=== PATIENT | female | born 1980 | race Caucasian/White ===

== ENCOUNTER 2022-04-08 08:29 | Outpatient (CLI) | payer MEDICAID, SELFPAY ==
--- NOTE | 2022-04-08 | US_ITS ---
WS: [id number] OBSTETRICAL ULTRASOUND COMPLETE HISTORY: MULTIGRAVIDA IN SECOND TRIMESTER COMPARISON: None available. Single intrauterine gestation in transverse presentation. head on maternal LEFT. Cervix is Closed and normal length. Cervical length is approximately 5.0 cm. Normal amount of amniotic fluid surrounds the fetus. Placenta: Posterior, no previa or abruption. Placenta grade 1 Heart: 152 BPM. Four chambers are identified. No outflow tracts submitted. Anatomy: Intracranial structures are negative. spine is posterior during this entire examinatio n. The soft tissue covering is very difficult to visualize. No abnormality identified but limited. Fe leda kidneys, stomach and urinary bladder are unremarkable. Abdominal wall, three-vessel cord and cord insertion site are normal. 4 extremities are present. profile: Unremarkable. Gender: Female. measurements: BPD = 5.0 cm = 21w2d HC = 18.3 cm = 20w5d AC = 15.6 cm = 20w5d FL = 3.4 cm = 20w5d EFW: 377 g. Biometry is internally concordant. AGA by ultrasound: 20 weeks 6 days ELISABETH by ultrasound: 08/20/2022 US/US OB >= 14 weeks fetus [id number] IMPRESSION: 1. Single intrauterine gestation of 20 weeks 6 days with an ELISABETH of 08/20/2022. 2. No abnormality identified concerning the anatomy. Spine is limited du e to its posterior position but no abnormality identified.
== END 2022-04-08 08:30 | disposition home or self-care (01) ==
LOC: RADOUTREAD 04-09 08:34
PROVIDERS: Family Provider Family Medicine; PCP Family Medicine; Visit Provider Family Medicine
DX: Z34.82 Encounter for supervision of other normal pregnancy, second trimester (principal)
CPT/HCPCS: 76805

== ENCOUNTER 2022-08-07 20:01 | Outpatient (CLI) | payer MEDICAID, SELFPAY ==
[2022-08-07 20:07] VITALS: BP 119/61; PULSE 86; TEMP 35.8
[2022-08-07 20:10] VITALS: RESP 15
[2022-08-07 20:11] VITALS: BMI 31.6
[2022-08-07 20:28] VITALS: BP 109/60; PULSE 81
[2022-08-07 20:30] VITALS: BP 109/60; PULSE 81; RESP 15; TEMP 35.8
== END 2022-08-07 20:36 | disposition home or self-care (01) ==
LOC: OPOB 20:01 → OBGYN 20:03
PROVIDERS: Family Provider Family Medicine; PCP Family Medicine; Visit Provider Family Medicine
DX: O24.419 Gestational diabetes mellitus in pregnancy, unspecified control (principal); Z3A.00 Weeks of gestation of pregnancy not specified
CPT/HCPCS: 59025

== ENCOUNTER 2022-08-11 08:50 | Outpatient (CLI) | payer MEDICAID, SELFPAY ==
[2022-08-11 08:50] VITALS: BMI 31.5
[2022-08-11 09:00] VITALS: BP 133/68; PULSE 81; TEMP 35.7
[2022-08-11 09:11] VITALS: RESP 16
[2022-08-11 09:21] VITALS: BP 114/70; PULSE 85
[2022-08-11 09:32] VITALS: BP 114/70; PULSE 85
== END 2022-08-11 09:35 | disposition home or self-care (01) ==
LOC: OPOB 08:57 → OBGYN 08:58
PROVIDERS: Family Provider Family Medicine; PCP Family Medicine; Visit Provider Family Medicine
DX: O24.419 Gestational diabetes mellitus in pregnancy, unspecified control (principal); Z3A.00 Weeks of gestation of pregnancy not specified
CPT/HCPCS: 59025; 99211

== ENCOUNTER 2022-08-14 11:14 | Outpatient (CLI) | payer MEDICAID, SELFPAY ==
[2022-08-14 11:18] VITALS: BP 118/68; PULSE 85
[2022-08-14 11:20] VITALS: BMI 31.2
[2022-08-14 11:33] VITALS: BP 113/66; PULSE 86
== END 2022-08-14 11:45 | disposition home or self-care (01) ==
LOC: OPOB 11:15 → OBGYN 11:15
PROVIDERS: Family Provider Family Medicine; PCP Family Medicine; Visit Provider Family Medicine
DX: O24.419 Gestational diabetes mellitus in pregnancy, unspecified control (principal); Z3A.00 Weeks of gestation of pregnancy not specified
CPT/HCPCS: 59025

== ENCOUNTER 2022-08-18 11:15 | Outpatient (CLI) | payer MEDICAID, SELFPAY ==
[2022-08-18 11:28] VITALS: BP 127/70; PULSE 89
[2022-08-18 11:32] VITALS: BMI 31.5
[2022-08-18 11:34] VITALS: RESP 17
[2022-08-18 11:43] VITALS: BP 107/63; PULSE 88
[2022-08-18 11:59] VITALS: BP 116/65; PULSE 88
[2022-08-18 12:03] VITALS: BP 116/65; PULSE 88
== END 2022-08-18 12:03 | disposition home or self-care (01) ==
LOC: OPOB 11:22 → OBGYN 11:23
PROVIDERS: Family Provider Family Medicine; PCP Family Medicine; Visit Provider Family Medicine
DX: O24.419 Gestational diabetes mellitus in pregnancy, unspecified control (principal); Z3A.00 Weeks of gestation of pregnancy not specified
CPT/HCPCS: 59025

== ENCOUNTER 2022-08-19 10:29 | Inpatient (IN) | payer MEDICAID, SELFPAY ==
[2022-08-19] VITALS (23 sets, daily range): BP systolic 113–130; BP diastolic 55–73; PULSE 61–93; RESP 16; TEMP 36.9; BMI 31.6
[2022-08-19] MEDS: miSOPROStol 100 mcg tablet 25 MCG VAGINAL (07:56)
[2022-08-19 08:38] LABS: Basophils % 0.3 %; Eosinophils # 0.2 10^3/uL (0.0-0.8); Eosinophils % 2.1 %; Hematocrit 36.2 % (37.0-47.0); Hemoglobin 12.1 g/dL (11.5-15.3); Lymphocytes # 1.6 10^3/uL (0.8-4.8); Lymphocytes % 15.7 %; Mean Corpuscular HGB Conc 33.4 g/dL (30.0-36.0); Mean Corpuscular Hemoglobin 30.8 pg (28.0-34.0); Mean Corpuscular Volume 92.1 fl (81-99); Mean Platelet Volume 11.1 fL (7.4-10.4); Monocytes # 0.8 10^3/uL (0.2-0.9); Monocytes % 7.6 %; Neutrophils # 7.57 10^3/uL (1.8-7.7); Neutrophils % 73.2 %; Nucleated Red Blood Cells % 0 %; Platelet Count 179 10^3/cmm (130-400); Red Blood Count 3.93 10^6/uL (4.1-5.3); Red Cell Distribution Width 14.1 % (12.1-15.1); White Blood Count 10.3 10^3/uL (4.0-10.0)
[2022-08-19 08:51] LABS: Glucose Point of Care 102 mg/dL (70-110)
[2022-08-19] MEDS: lactated ringers 1,000 ML 999 ML IV (10:40)
--- NOTE | 2022-08-19 11:17 | P.HPUD_ITS ---
Labor & Delivery H&P Update Date of Procedure: August 19, 2022 Date H&P Performed: 08/15/22 Changes to previous documentation: None Admission Diagnosis: 42-year-old 7 para 6-0-0-6 at 39 weeks and 6 days presenting for induction due to gestational diabetes and advanced maternal age Planned procedure: Spontaneous vaginal delivery Other information: Patient is a 42-year-old female with well-controlled gestational diabetes who presented to the hospital for induction. In my office had several discussions a bout the value of induction especially considering her gestational diabetes and her advanced maternal age. Initially she was very hesitant to accept induction, but ultimately decided that she was okay with that. Her is otherwise been unremarkable. Her blood type is a positive. Her antibody screen is negative. She is rubella immune. The remainder of her infectious disease profile is within normal limits. She is GBS negative. She failed her 3-hour glucose screen. She did an excellent job of maintaining it appropriate postprandial sugars with diet control only. She consistently checks her blood sugars 4 times a day. There are no further concerns.
--- NOTE | 2022-08-19 11:20 | P.PCNOB_ITS ---
Delivery Note: Date of delivery: August 19, 2022 Pre-delivery diagnoses: 22-year-old 7 para 6-0-0-6 at 39 weeks and 6 days who presented for induction Post-delivery diagnoses: Status post spontaneous vaginal delivery Procedure: Spontaneous vaginal delivery Estimated blood loss (mL): 50 Pre-Delivery Course: The patient presented to the hospital for Cytotec 25 mcg was placed. Spontaneous rupture of membranes occurred. She progressed to complete without difficulty. Delivery: DELIVERY: The patient progressed to complete without difficulty. She delivered a female with a weight of 8 pounds 5 ounces with Apgars of 9, 9. The baby was delivered from the ABEBE position and placed on the mother's abdomen. The cord was then clamped and cut. There was no nuchal cord. There was no meconium. The placenta and 3 vessel cord were delivered intact shortly thereafter. The perineum and vaginal vault were carefully examined. No lacerations were noted. Both the mother and the baby were in stable condition. The patient refused Pitocin was absolutely necessary. Her uterus was rocksolid, and she had almost no bleeding. No Pitocin was initiated Post-Delivery Status: Good A&P Assessment and plan (1) 39 weeks gestation of : I anticipate routine care. We will be checking her blood sugars twice a day . Since her blood sugars were so well controlled during her , anticipate they will be normal at this time as well. We see blood sugars that are more elevated, we will adjust our blood sugar checking regimen. (2) Advanced maternal age in multigravida: (3) Gestational diabetes mellitus: (4) Spontaneous vaginal delivery: Coding Level of Care Code Acute Embroidery Specialist for Chg Fwd Diagnoses 39 weeks gestation of Z3A.39 Advanced maternal age in multigravida O09.529 Gestational diabetes mellitus O24.419 Spontaneous vaginal delivery O80
[2022-08-19] MEDS: ibuprofen 800 mg tablet PO ×2 (13:38→20:08)
[2022-08-19 17:08] LABS: Glucose Point of Care 116 mg/dL (70-110)
[2022-08-19 23:09] LABS: Hematocrit 32.3 % (37.0-47.0); Hemoglobin 11.2 g/dL (11.5-15.3); Mean Corpuscular HGB Conc 34.7 g/dL (30.0-36.0); Mean Corpuscular Hemoglobin 32.1 pg (28.0-34.0); Mean Corpuscular Volume 92.6 fl (81-99); Mean Platelet Volume 11.2 fL (7.4-10.4); Platelet Count 149 10^3/cmm (130-400); Red Blood Count 3.49 10^6/uL (4.1-5.3); Red Cell Distribution Width 14.1 % (12.1-15.1); White Blood Count 10.9 10^3/uL (4.0-10.0)
[2022-08-20 02:17] VITALS: BP 119/59; PULSE 69
[2022-08-20 02:19] VITALS: RESP 15; TEMP 36.7
[2022-08-20 04:49] VITALS: BP 119/67; PULSE 75
[2022-08-20 04:53] VITALS: RESP 16; TEMP 36.8
--- NOTE | 2022-08-20 06:38 | P.DS_ITS ---
Discharge Providers HVAC TECHNICIAN RESIDENTIAL Date of Admission: 08/19/22 10:29 Date of Discharge: 08/20/22 Attending Provider at Admission: Juve Copeland MD Attending Provider at Discharge: Juve Copeland MD Primary Care Provider: Jean Carlos Munroe MD Diagnoses at Discharge Discharge Diagnosis (1) 39 weeks gestation of : Status: Acute (2) Advanced maternal age in multigravida: Status: Acute (3) Gestational diabetes mellitus: Status: Acute (4) Spontaneous vaginal delivery: Status: Acute Reason for Visit Reason for Visit: Induction for Gestational Diabetes Hospital Course Hospital Course The patient presented to the hospital for induction at 39 weeks due to gestational diabetes and advanced maternal age. She had already been having some contractions during the night. She was placed on Cytotec x1 per vagina. She had spontaneous rupture of membranes. She progressed to complete and had an unremarkable delivery of a healthy appearing female infant. Her course was also unremarkable. She breast-fed well. Her bleeding was within normal limits. Her pain was well controlled. She was concerned about some pain she was having on her right lower pelvic area that worsened with breast-feeding. Information Peripartum Data: Delivery Method: Vaginal Physical Exam Narrative: The patient is alert. She appears comfortable. Her heart has a regular rate and rhythm with no murmurs appreciated. Lungs are clear to auscultation bilaterally. Her fundus is firm and below the umbilicus. I palpated the area in right lower quadrant where she said she was having pain. There is no tenderness to palpation. There is no rebound or guarding. Discharge Data Studies Completed and Pending Laboratory Results WBC 10.9 10^3/uL (4.0-10.0) H 08/19/22 22:56 RBC 3.49 10^6/uL (4.1-5.3) L 08/19/22 22:56 Hgb 11.2 g/dL (11.5-15.3) L 08/19/22 22:56 Hct 32.3 % (37.0-47.0) L 08/19/22 22:56 MCV 92.6 fl (81-99) 08/19/22 22:56 MCH 32.1 pg (28.0-34.0) 08/19/22 22:56 MCHC 34.7 g/dL (30.0-36.0) 08/19/22 22:56 RDW 14.1 % (12.1-15.1) 08/19/22 22:56 Plt Count 149 10^3/cmm (130-400) 08/19/22 22:56 MPV 11.2 fL (7.4-10.4) H 08/19/22 22:56 Neut % (Auto) 73.2 % 08/19/22 08:00 Lymph % (Auto) 15.7 % 08/19/22 08:00 Maverick % (Auto) 7.6 % 08/19/22 08:00 Eos % (Auto) 2.1 % 08/19/22 08:00 Baso % (Auto) 0.3 % 08/19/22 08:00 Neut # (Auto) 7.57 10^3/uL (1.8-7.7) 08/19/22 08:00 Lymph # (Auto) 1.6 10^3/uL (0.8-4.8) 08/19/22 08:00 Maverick # (Auto) 0.8 10^3/uL (0.2-0.9) 08/19/22 08:00 Eos # (Auto) 0.2 10^3/uL (0.0-0.8) 08/19/22 08:00 Baso # (Auto) 0.0 10^3/uL (0.0-0.1) 08/19/22 08:00 Nucleated RBC % (auto) 0 % 08/19/22 08:00 Nucleated RBCs # 0.0 /100WBC 08/19/22 08:00 POC Glucose 116 mg/dL (70-110) H 08/19/22 16:58 Vitals Last Vital Signs Temp 98.2 F 08/20/22 04:53 Pulse 75 08/20/22 04:49 Resp 16 08/20/22 04:53 BP 119/67 08/20/22 04:49 O2 Del Method 08/19/22 07:31 Discharge Plan Discharge Patient Disposition: Home Condition: Stable Prescriptions: New ibuprofen 800 mg Tablet 800 mg PO TID PRN (Reason: Abdominal Pain) Qty: 30 0RF Continued albuterol 90 mcg/actuation Aerosol 1 mcg INHALATION PRN PRN (Reason: Shortness Of Breath) vit 60-iron fum-folic 27 mg iron- 1 mg Tablet 1 tab PO DAILY Vitamin C 500 mg Tablet 250 mg PO DAILY zinc 25 mg Tablet 25 mg PO DAILY Discharge Orders: Discharge Order (Routine); Ordered 08/20/22 Ordered By: Juve Copeland Referrals: Juve Copeland MD [Physician] - 6 Weeks Discharge Diet: Usual diet Discharge Activity: Limit activity as instructed Patient Instructions: Opioid Safety Discharge Attestations HVAC TECHNICIAN RESIDENTIAL Time Spent in Discharge Care*: less than 30 min Coding Level of Care Code Acute Public Policy Professor for Chg Fwd Diagnoses 39 weeks gestation of Z3A.39 Advanced maternal age in multigravida O09.529 Gestational diabetes mellitus O24.419 Spontaneous vaginal delivery O80
[2022-08-20 09:32] VITALS: BP 109/60; PULSE 84; RESP 15; TEMP 36.1
[2022-08-20] MEDS: ibuprofen 800 mg tablet PO (09:33)
[2022-08-20] MEDS: prenatal vitamin Capsule 1 CAP PO (09:33)
[2022-08-20] MEDS: docusate sodium 100 mg Capsule PO (09:33)
[2022-08-20 10:34] LABS: Glucose Point of Care 96 mg/dL (70-110)
[2022-08-20 12:20] VITALS: BP 109/60; PULSE 84; RESP 15; TEMP 36.1
== END 2022-08-20 12:00 | disposition home or self-care (01) | DRG 807 ==
LOC: OPOB 10:30 → OBGYN 10:30
PROVIDERS: Admitting Provider Family Medicine; Family Provider Family Medicine; PCP Family Medicine; Visit Provider Family Medicine
DX: O24.420 Gestational diabetes mellitus in childbirth, diet controlled (principal); Z37.0 Single live birth; Z3A.39 39 weeks gestation of pregnancy
CPT/HCPCS: 12345; 36415; 36416; 59025; 59409; 82962; 85025; 85027; J7120